=== PATIENT | male | born 1965 | race Two or more races ===

== ENCOUNTER 2020-02-20 11:32 | Inpatient (IN) | payer MEDICAID ==
[~2020-02-20] VITALS: Ht 160 cm; Wt 63.1 kg
[2020-02-20] MEDS ORDERED: ONDANSETRON HCL 4MG/2ML INJ IV STA (11:47)
[2020-02-20] MEDS ORDERED: SODIUM CHLORIDE 0.9% 1,000 ML IV ONE (11:47)
[2020-02-20] MEDS ORDERED: MAGNESIUM/ALUMINUM HYDROXIDE/SIMETHICONE 30ML UDC PO STA (11:47)
[2020-02-20] MEDS ORDERED: PANTOPRAZOLE SODIUM 40 MG/VIAL IV STA (11:47)
[2020-02-20 12:07] LABS: BASOPHILS % 0.6 % (0.0-2.0); EOSINOPHILS % 0.1 % (0.0-5.0); HEMATOCRIT. 48.4 % (42.0-52.0); HEMOGLOBIN. 16.7 g/dL (14.0-18.0); LYMPHOCYTES % 8.6 % (20.0-50.0); MEAN CORPUSCULAR HEMOGLOBIN 32.9 pg (28.0-32.0); MEAN CORPUSCULAR VOLUME 95.5 fL (80.0-94.0); MONOCYTES % 4.6 % (2.0-8.0); NEUTROPHILS % 86.1 % (40.0-76.0); RED BLOOD CELL COUNT 5.07 mill/uL (4.7-6.1); RED CELL DISTRIBUTION WIDTH 14.4 % (11.6-14.6)
[2020-02-20 12:15] LABS: INR 1.2; PROTHROMBIN TIME 12.7 sec (9.6-11.0)
[2020-02-20 12:16] LABS: CHLORIDE 100 mEq/L (98-107)
[2020-02-20 12:19] LABS: ETHANOL BLOOD 264 mg/dL
[2020-02-20 12:42] LABS: PLATELET 214 x1000/uL (130-400)
[2020-02-20 14:15] LABS: CLARITY URINE CLEAR (CLEAR); COLOR URINE YELLOW (YELLOW); KETONES URINE 2+ (NEGATIVE); LEUKOCYTE ESTERASE URINE NEGATIVE (NEGATIVE); NITRITE URINE NEGATIVE (NEGATIVE); OCCULT BLOOD URINE NEGATIVE (NEGATIVE); PROTEIN URINE TRACE (NEGATIVE)
[2020-02-20] MEDS ORDERED: CEFTRIAXONE 1 G PREMIX 50 ML IV ONE (14:15)
[2020-02-20] MEDS ORDERED: ACETAMINOPHEN 325MG TABLET PO PRN (14:45)
[2020-02-20] MEDS ORDERED: ONDANSETRON HCL 4MG/2ML INJ IV PRN (14:45)
[2020-02-20] MEDS ORDERED: LORAZEPAM 2MG/ML CPJ IV PRN (14:45)
[2020-02-20 14:46] LABS: *BARBITURATES SCREEN URINE NEGATIVE (NEGATIVE)
[2020-02-20 14:47] LABS: *AMPHETAMINES SCREEN URINE NEGATIVE (NEGATIVE); *COCAINE SCREEN URINE NEGATIVE (NEGATIVE); CANNABINOID URINE SCREEN NEGATIVE (NEGATIVE); METHADONE URINE SCREEN NEGATIVE (NEGATIVE); OPIATES URINE SCREEN NEGATIVE (NEGATIVE); PHENCYCLIDINE URINE SCREEN NEGATIVE (NEGATIVE)
[2020-02-20 14:51] LABS: *BENZODIAZEPINES SCREEN URINE NEGATIVE (NEGATIVE)
[2020-02-20] MEDS ORDERED: LEVOFLOXACIN 500MG PREMIX 100 ML IV NR (15:00)
[2020-02-20] MEDS ORDERED: CHLORDIAZEPOXIDE 25MG CAPSULE PO ONE (15:15)
[2020-02-20] MEDS ORDERED: LORAZEPAM 2MG/ML CPJ IV ONE (15:15)
[2020-02-20] MEDS ORDERED: FOLIC ACID 1 MG, THIAMINE HCL 100 MG, MVI, ADULT NO.1 10 ML in DEXTROSE 5% WATER 1,000 ML IV SCH ×4 (16:00)
[2020-02-20] MEDS: DEXT 5%/0.45% NACL 1000ML 1,000 ML IV SCH (16:10)
[2020-02-20] MEDS ORDERED: IOHEXOL-300 100 ML BOTTLE ONE (17:09)
[2020-02-20 22:53] LABS: HEMATOCRIT 36.5 % (42.0-52.0); MEAN CORPUSCULAR HEMOGLOBIN 33.4 pg (28.0-32.0); PLATELET 137 x1000/uL (130-400); RED BLOOD CELL COUNT 3.88 mill/uL (4.7-6.1)
[2020-02-21] VITALS: BP 112/60
[2020-02-21] MEDS: CHLORDIAZEPOXIDE 25MG CAPSULE PO SCH ×3 (02:29→14:49)
[2020-02-21 04:00] VITALS: BP 101/59
[2020-02-21] MEDS: DEXT 5%/0.45% NACL 1000ML 1,000 ML IV SCH ×2 (04:12→11:26)
[2020-02-21 06:57] LABS: BASOPHILS % 0.4 % (0.0-2.0); EOSINOPHILS % 0.5 % (0.0-5.0); HEMATOCRIT. 36.2 % (42.0-52.0); LYMPHOCYTES % 16.8 % (20.0-50.0); MEAN CORPUSCULAR HEMOGLOBIN 33.3 pg (28.0-32.0); MEAN PLATELET VOLUME 9.4 fl (7.4-10.4); MONOCYTES % 10.5 % (2.0-8.0); NEUTROPHILS % 71.8 % (40.0-76.0); PLATELET 105 x1000/uL (130-400); RED CELL DISTRIBUTION WIDTH 13.8 % (11.6-14.6)
[2020-02-21 07:02] LABS: CHLORIDE 102 mEq/L (98-107)
[2020-02-21 07:48] VITALS: BP 92/67
[2020-02-21] MEDS ORDERED: PANTOPRAZOLE SODIUM 40 MG/VIAL IV SCH (09:00)
[2020-02-21 11:48] VITALS: BP 103/61
[2020-02-21] MEDS ORDERED: OMEP20TA2 MT (12:25)
[2020-02-21] MEDS ORDERED: THIA100T88 MT (12:25)
[2020-02-21 13:13] VITALS: BP 105/64
[2020-02-21] MEDS ORDERED: LEVOFLOXACIN 500MG PREMIX 100 ML IV SCH (14:00)
[2020-02-21 15:43] VITALS: BP 108/69
== END 2020-02-21 16:20 | disposition home or self-care (01) | DRG 249 ==
LOC: ER 11:32 → 6WST 14:45 → EDBEDREQ 14:46 → ENRESERV 19:56
PROVIDERS: ADMIT Internal Medicine; ATTEND Internal Medicine
DX: K52.9 Noninfective gastroenteritis and colitis, unspecified (principal); K74.60 Unspecified cirrhosis of liver; E16.2 Hypoglycemia, unspecified; K57.90 Diverticulosis of intestine, part unspecified, without perforation or abscess without bleeding; Y90.8 Blood alcohol level of 240 mg/100 ml or more; R00.0 Tachycardia, unspecified; Z87.11 Personal history of peptic ulcer disease; Z59.0 Homelessness; F10.10 Alcohol abuse, uncomplicated; Z71.41 Alcohol abuse counseling and surveillance of alcoholic
CPT/HCPCS: 36415; 74177; 80048; 80053; 80305; 80320; 81003; 82962; 83036; 84145; 85025; 85027; 86850; 86900; 93005; 99285; C9113; J0696; J1956; J2060; J2405; J3411; J3490; J7030; J7070; Q9967; G0480

== ENCOUNTER 2020-06-05 10:59 | Emergency (ER) | payer MEDICAID ==
[~2020-06-05] VITALS: Ht 170.2 cm; Wt 63.0 kg
[~2020-06-05 10:59] MED LIST: OMEP20TA2 MT; THIA100T88 MT
[2020-06-05] MEDS ORDERED: SODIUM CHLORIDE 0.9% 1,000 ML IV ONE (11:56)
[2020-06-05 12:36] LABS: BASOPHILS % 0.7 % (0.0-2.0); EOSINOPHILS % 0.4 % (0.0-5.0); HEMATOCRIT. 46.2 % (42.0-52.0); HEMOGLOBIN. 16.2 g/dL (14.0-18.0); LYMPHOCYTES % 26.3 % (20.0-50.0); MEAN CORPUSCULAR HEMOGLOBIN 32.1 pg (28.0-32.0); MEAN CORPUSCULAR VOLUME 91.6 fL (80.0-94.0); MEAN PLATELET VOLUME 9.3 fl (7.4-10.4); MONOCYTES % 6.4 % (2.0-8.0); NEUTROPHILS % 66.2 % (40.0-76.0); PLATELET 130 x1000/uL (130-400); RED BLOOD CELL COUNT 5.04 mill/uL (4.7-6.1); RED CELL DISTRIBUTION WIDTH 13.2 % (11.6-14.6)
[2020-06-05 12:38] LABS: CHLORIDE 107 mEq/L (98-107)
[2020-06-05 12:55] LABS: ETHANOL BLOOD 439 mg/dL
[2020-06-05 14:47] LABS: *BARBITURATES SCREEN URINE NEGATIVE (NEGATIVE)
[2020-06-05 14:48] LABS: *AMPHETAMINES SCREEN URINE NEGATIVE (NEGATIVE); *BENZODIAZEPINES SCREEN URINE NEGATIVE (NEGATIVE); *COCAINE SCREEN URINE NEGATIVE (NEGATIVE); CANNABINOID URINE SCREEN NEGATIVE (NEGATIVE); METHADONE URINE SCREEN NEGATIVE (NEGATIVE); OPIATES URINE SCREEN NEGATIVE (NEGATIVE); PHENCYCLIDINE URINE SCREEN NEGATIVE (NEGATIVE)
[2020-06-05 17:45] VITALS: BP 108/68
== END 2020-06-05 18:25 | disposition home or self-care (01) ==
LOC: ER 10:59
DX: F10.229 Alcohol dependence with intoxication, unspecified (principal); Y90.8 Blood alcohol level of 240 mg/100 ml or more
CPT/HCPCS: 36415; 80053; 80305; 80320; 85025; 93005; 99285; J7030; Z7610; G0480